=== PATIENT | female | born 1950 | race Caucasian/White ===

== ENCOUNTER 2016-11-23 16:47 | Inpatient (IN) | payer MEDICARE ==
[~2016-11-23] VITALS: Ht 162.6 cm; Wt 78.5 kg
--- NOTE | 2016-11-23 17:04 | NUR ---
GPS ADMISSION NOTES/ PATIENT DIRECT ADMIT, BROUGHT BY AMBULANCE FROM [facility] IN [place] 66 Y/OLD FEMALE ON Dx. OF DANGER TO OTHER 5150 HOLD. ACCORDING ON HOLD PATIENT PUSHED ALT NURSE DURING MED DELIVERING. PATIENT DELUSIONAL, PARANOID, VERBALLY ABUSIVE, , AGGRESSIVE. FACE TO FACE ASSESSMENT PATIENT A/O X3, DELUSIONAL, LABILE, GET IRRITABLE EASILY, FORGETFUL. V/S TAKEN BP-121/73, P-77,O2-95 ROOM AIR, T-98.2, R-20, NO RESPIRATORY DISTRESS, SKIN ASSESSMENT DONE SKIN CLEAR, PT AMBULATORY SELF CARE, CONTINENT. MRSA OF NARES SWAB TAKEN. PATIENT DENIED SI/HI AT THIS TIME. PATIENT RIGHT HAND BOOK GIVEN, AND EXPLAINED TO. BELONGING AND CONTRABAND CHECKED. DR CUI, AND DR GENTILE AWARE OF NEW MEDICATION, AND NEW MEDICATION. CONTINUED MONITORING..
[2016-11-23 17:26] VITALS: BP 121/73
[2016-11-23] MEDS ORDERED: ESCI10TA PO (17:33)
[2016-11-23] MEDS ORDERED: TRAZ-147 PO (17:33)
[2016-11-23] MEDS ORDERED: QUET300T2 PO (17:33)
[2016-11-23] MEDS ORDERED: CHOL50004 PO (17:33)
[2016-11-23] MEDS ORDERED: DOCU-170 PO (17:33)
[2016-11-23] MEDS ORDERED: MAGN400O6 PO (17:33)
[2016-11-23] MEDS ORDERED: POLY17PO4 PO (17:33)
[2016-11-23] MEDS ORDERED: ZOLP10TA6 PO (17:33)
[2016-11-23] MEDS ORDERED: FISH1CAP16 PO (17:33)
--- NOTE | 2016-11-23 20:30 | NUR ---
GPS RN NOTE: NOTIFIED DR. THAKUR TO RECONCILE THE MEDICATION. PER DR. THAKUR HE WILL CHECK IT.
[2016-11-23 20:35] VITALS: BP 130/85
--- NOTE | 2016-11-23 22:35 | NUR ---
GPS RN NOTE: PATIENT WAS REQUESTING IF SHE CAN HAVE HER SEROQUEL 400 MG AND ALL OTHER HER MEDICATIONS. EXPLAINED TO THE PATIENT THAT SHE NEEDS TO BE EVALUATED AND ASSESSED BY HER PSYCHIATRIST FIRST. PER PATIENT SHE CAN NOT SLEEP, OFFERED HER TO WATCH TV IN THE DINING AREA, PATIENT WAS COMPLAINING IN A LOUD VOICE THEN BANG THE DOOR. EXPLAINED TO THE PATIENT ABOUT HER ACTIONS WAS INAPPROPRIATE IN THIS UNIT. PATIENT LAY DOWN THE BED. CHARGE NURSE AWARE AND REDIRECTED THE PATIENT
[2016-11-24] MEDS ORDERED: LURA80TA (01:02)
[2016-11-24] MEDS ORDERED: BENZ1TAB7 (01:02)
[2016-11-24] MEDS ORDERED: QUET400T53 (01:02)
[2016-11-24] MEDS ORDERED: ESCITALOPRAM (01:02)
[2016-11-24] MEDS ORDERED: ESCI10TA (01:02)
[2016-11-24] MEDS ORDERED: CHLO25TA2 (01:02)
[2016-11-24 07:42] LABS: BASOPHILS % (AUTO) 0.5 % (0.0-2.0); EOSINOPHILS # (AUTO) 0.1 /CMM (0.0-0.7); EOSINOPHILS % (AUTO) 1.9 % (0.0-6.0); HEMATOCRIT 42 % (33-45); HEMOGLOBIN 14.3 g/dL (11.5-14.8); LYMPHOCYTES # (AUTO) 2.2 /CMM (0.8-4.8); LYMPHOCYTES % (AUTO) 30.9 % (20.0-44.0); MEAN CORPUSCULAR HEMOGLOBIN 30 PG (26.0-33.0); MEAN CORPUSCULAR HGB CONC 34 g/dl (31.0-36.0); MEAN CORPUSCULAR VOLUME 87 fL (82-100); MONOCYTES # (AUTO) 0.5 /CMM (0.1-1.30); MONOCYTES % (AUTO) 6.6 % (2.0-12.0); NEUTROPHILS # (AUTO) 4.3 /CMM (1.8-8.9); NEUTROPHILS % (AUTO) 60.1 % (43.0-81.0); PLATELET COUNT (AUTO) 296 /CMM (150-450); RDW COEFFICIENT OF VARIATION 12.7 (11.5-15.0); RED BLOOD CELL COUNT(AUTO) 4.84 MIL/uL (4.0-5.2); WHITE BLOOD COUNT (AUTO) 7.2 K/uL (4.3-11.0)
[2016-11-24 07:53] LABS: CALCIUM, SERUM 9.7 mg/dL (8.5-10.1); CREATININE 0.8 mg/dL (0.6-1.3); POTASSIUM 4.3 mmol/L (3.5-5.1)
[2016-11-24 07:58] LABS: ALBUMIN 3.5 g/dL (3.4-5.0); BILIRUBIN,TOTAL 0.4 mg/dL (0.2-1.0); MAGNESIUM 2.2 mg/dL (1.8-2.4); PHOSPHORUS 3.9 mg/dL (2.5-4.9); TOTAL PROTEIN, SERUM 7.4 g/dL (6.4-8.2)
[2016-11-24 08:00] VITALS: BP 120/78
[2016-11-24 08:05] LABS: THYROID STIMULATING HORMONE 2.177 uIU/mL (0.358-3.74)
[2016-11-24 16:00] VITALS: BP 141/60
[2016-11-24 20:00] VITALS: BP 130/58
[2016-11-25 08:33] VITALS: BP 121/90
--- NOTE | 2016-11-25 13:59 | NUR ---
Initial Discharge Note: Per patient, she resides at [address] [place] [address]. ([phone]). boil off worker attempted to contact ([phone]) however it was a wrong number. boil off worker will help form a safe and proper discharge.
[2016-11-25 16:00] VITALS: BP 140/80
[2016-11-25 20:00] VITALS: BP 126/76
--- NOTE | 2016-11-26 00:03 | NUR ---
GPS/RN NOTE: PATIENT C/O INSOMNIA, AMBIEN 5 MG TAB 1 PO GIVEN PER PATIENT'S REQUEST.
[2016-11-26 08:00] VITALS: BP 121/94
[2016-11-26 16:11] VITALS: BP 124/74
[2016-11-26 20:00] VITALS: BP 145/68
--- NOTE | 2016-11-26 22:35 | NUR ---
GPS RN NOTE: PT APPROACHED ME AND COMPLAINED OF INSOMNIA. ADMINISTERED AMBIEN 5MG TO PT. WILL CONTINUE TO MONITOR PT.
[2016-11-27 08:00] VITALS: BP 119/78
[2016-11-27 16:02] VITALS: BP 104/72
[2016-11-27 20:06] VITALS: BP 127/73
--- NOTE | 2016-11-28 01:10 | NUR ---
Pt has been with depressed mood, disorganized thoughts, flat affect, & easily irritable but compliant with care w/o any promptings.
[2016-11-28 08:00] VITALS: BP 106/74
[2016-11-28 08:33] VITALS: BP 106/74
--- NOTE | 2016-11-28 13:34 | NUR ---
OMARI left a voicemail for Mayur, securities and real estate director from [facility] [address] [place] [address]. ([phone]) regarding pt's readmission. OMARI spoke with someone from the facility who stated the only person able to make that decision is Mayur. OMARI will follow up again.
[2016-11-28 16:00] VITALS: BP 130/67
--- NOTE | 2016-11-28 19:30 | NUR ---
GPS RN NOTE, RECEIVED PATIENT AWAKE AND IN BED, NO S/S OR COMPLAINTS OF PAIN AT THIS TIME. PATIENT IS DISPLAYING NO S/S OF APPARENT DISTRESS AT THIS TIME. PATIENT BREATHING IS UNLABORED WITH EQUAL RISE AND FALL OF THE CHEST. PATIENT IS ALERT AND ORIENTED X 3 ON ROOM AIR WITH A SPO2 96%. PATIENT COMPLAINT WITH MEDICATION, ANXIOUS, COOPERATIVE AT TIMES, GUARDED, SUSPICIOUS, AND NEEDS REORIENTATION. PATIENT DENIES SUICIDE AND HOMICIDAL IDEATIONS AT THIS TIME. PATIENT ASSISTED WITH TURNING AND REPOSITIONING Q2HR AND PRN FOR COMFORT AND CIRCULATION. PATIENT HAS NO NEEDS AT THIS TIME. PATIENT EDUCATED ON THE USE OF THE CALL LE. PATIENT BED SIDE RAILS UP X2 FOR SAFETY, BED IS LOCKED AND LOW WILL CONTINUE TO MONITOR AND MAINTAIN SAFETY.
[2016-11-28 20:18] VITALS: BP 157/49
--- NOTE | 2016-11-28 21:56 | NUR ---
GPS RN NOTE, PATIENT HAS A COMPLAINT OF NOT BEING ABLE TO SLEEP AND WOULD LIKE A SLEEPING AID AT THIS TIME. PATIENT VITAL SIGNS ARE STABLE. GAVE AMBIEN 5MG PO HS ORDERED. WILL REASSESS FOR INSOMNIA AND I WILL CONTINUE TO MONITOR THIS PATIENT.
[2016-11-29 08:00] VITALS: BP 148/98
--- NOTE | 2016-11-29 15:20 | NUR ---
OMARI spoke with Jb from [facility] [address] [place] [address]. ([phone]) who now states that the rn social services needs to speak with the senior marketing data analyst, Emma. OMARI left a voicemail for Emma.
[2016-11-29 16:00] VITALS: BP 113/61
--- NOTE | 2016-11-29 19:35 | NUR ---
GPS/RN NOTE: AWAKE, ALERT, ORIENTED X 2-3. COOPERATIVE, AMBULATORY. NO APPARENT DISTRESS NOTED.
[2016-11-29 20:11] VITALS: BP 151/66
--- NOTE | 2016-11-29 22:19 | NUR ---
GPS/RN NOTE: PATIENT APPROACHED THE NURSE'S STATION, REQUESTING FOR AMBIEN DUE TO HER INABILITY TO SLEEP, AMBIEN 5 MG TAB PO GIVEN.
[2016-11-30 08:00] VITALS: BP 125/67
[2016-11-30 16:00] VITALS: BP 124/54
--- NOTE | 2016-11-30 18:00 | NUR ---
dr. rowland and dr. sainz in to see pt.
[2016-11-30 20:00] VITALS: BP 143/58
[2016-11-30 20:40] VITALS: BP 143/58
[2016-12-01 08:00] VITALS: BP 114/66
--- NOTE | 2016-12-01 13:52 | NUR ---
OMARI called [facility] [address] [place] [address], and spoke with Jb (area secretary) who redirected hospital social worker to contracting executive, Mayur Medeiros. OMARI left voicemail for Mayur Medeiros. OMARI will follow up.
[2016-12-01 16:00] VITALS: BP 122/77
[2016-12-01 20:00] VITALS: BP 116/60
[2016-12-02 07:06] LABS: BASOPHILS % (AUTO) 0.5 % (0.0-2.0); EOSINOPHILS # (AUTO) 0.1 /CMM (0.0-0.7); EOSINOPHILS % (AUTO) 1.9 % (0.0-6.0); HEMATOCRIT 39 % (33-45); HEMOGLOBIN 13.1 g/dL (11.5-14.8); LYMPHOCYTES # (AUTO) 2.3 /CMM (0.8-4.8); LYMPHOCYTES % (AUTO) 33.5 % (20.0-44.0); MEAN CORPUSCULAR HEMOGLOBIN 30 PG (26.0-33.0); MEAN CORPUSCULAR HGB CONC 34 g/dl (31.0-36.0); MEAN CORPUSCULAR VOLUME 87 fL (82-100); MONOCYTES # (AUTO) 0.5 /CMM (0.1-1.30); MONOCYTES % (AUTO) 7.4 % (2.0-12.0); NEUTROPHILS # (AUTO) 3.9 /CMM (1.8-8.9); NEUTROPHILS % (AUTO) 56.7 % (43.0-81.0); PLATELET COUNT (AUTO) 247 /CMM (150-450); RDW COEFFICIENT OF VARIATION 12.9 (11.5-15.0); RED BLOOD CELL COUNT(AUTO) 4.43 MIL/uL (4.0-5.2); WHITE BLOOD COUNT (AUTO) 6.9 K/uL (4.3-11.0)
[2016-12-02 07:23] LABS: CALCIUM, SERUM 8.9 mg/dL (8.5-10.1); CREATININE 0.8 mg/dL (0.6-1.3); POTASSIUM 3.9 mmol/L (3.5-5.1)
[2016-12-02 08:00] VITALS: BP 118/58
--- NOTE | 2016-12-02 11:11 | NUR ---
OMARI spoke with Mayur, the legal executive assistant of [facility], [address] [place] [address] at [phone]. OMARI informed Mayur that pt was ready for discharge. Mayur stated that pt can return to the independent living facility, if she is cleared by psychiatrist. Mayur stated that if pt is going to exhibit disruptive behavior, then he will consider evicting her. OMARI spoke with pt and informed her of this. Pt wants to return to [facility] and stated that she understands the potential consequences of her behavior. OMARI will follow up with and will arrange transportation, if deemed appropriate.
--- NOTE | 2016-12-02 13:03 | NUR ---
OMARI called Katya at [phone] to arrange transportation for patient. Katya informed OMARI that the poultry picker will be scheduled for Sunday 12/03 at 11am. Katya stated that she does not anticipate any issues, but if a weekend transportation cannot be arranged for any reason, then it will be rescheduled for Tuesday 12/05. OMARI informed of this. OMARI will follow up if necessary.
[2016-12-02 16:00] VITALS: BP_SYST 111; BP_SYST 123; BP_DIAS 59; BP_DIAS 71
[2016-12-02 20:00] VITALS: BP 125/80
[2016-12-03 08:00] VITALS: BP 117/59
--- NOTE | 2016-12-03 09:58 | NUR ---
DR. CUI GAVE AN ORDER TO D/C [facility] AND D/C TO [facility]. PT. WITHOUT DISTRESS, DENIES SUICIDAL AND HOMICIDAL. TO FOLLOW UP WITH PSYCHE AND MEDICAL DOCTORS. DR. CHIN MADE AWARE OF THE DISCHARGE AND CLEARED FOR DISCHARGE AND WROTE A PRESCRIPTIONS. MULU SEARS FROM [facility] WAS CALLED AND SAID THEY WILL ACCEPT THE PT. TODAY. CALLED [facility] FOR THE TRANSPORTATION AND SAID THEY WILL COME TO LABOR RELATIONS ANALYST PT. AFTER 1100. Addendum: 12/03/16 at 1053 by CHET TAM RN PER PT. NOBODY OR FAMILY TO NOTIFY ABOUT HER DISCHARGE.
--- NOTE | 2016-12-03 11:15 | NUR ---
GPS/RN PT DISCHARGED TO [facility] VIA PRIVATE TRANSPORTATION ARRANGED BY FACILITY. NO SI OR HI AT THE TIME OF DISCHARGE. PRESCRIPTIONS/EXIT CARE PROVIDED. BELONGINGS RETURNED. VSS. PT IS AMBULATORY NO C/O PAIN /DISTRESS.
== END 2016-12-03 11:15 | DRG 885 ==
LOC: GPS 16:47
PROVIDERS: ADMIT Psychiatry & Neurology Psychosomatic Medicine; ATTEND Internal Medicine
DX: F32.3 Major depressive disorder, single episode, severe with psychotic features (principal); N18.3 Chronic kidney disease, stage 3 (moderate); F03.90 Unspecified dementia, unspecified severity, without behavioral disturbance, psychotic disturbance, mood disturbance, and anxiety; F29 Unspecified psychosis not due to a substance or known physiological condition; E78.5 Hyperlipidemia, unspecified; E66.9 Obesity, unspecified; K21.9 Gastro-esophageal reflux disease without esophagitis; Z73.6 Limitation of activities due to disability; K59.00 Constipation, unspecified; Z68.29 Body mass index [BMI] 29.0-29.9, adult; I25.10 Atherosclerotic heart disease of native coronary artery without angina pectoris
CPT/HCPCS: 36415; 80048-TC; 80053-TC; 80061-TC; 80076-TC; 83540-TC; 83735-TC; 84100-TC; 84443-TC; 85025-TC; 87081-TC; Z7610

== ENCOUNTER 2016-12-31 16:07 | Inpatient (IN) | payer MEDICARE ==
[~2016-12-31] VITALS: Ht 162.6 cm; Wt 81.6 kg
[~2016-12-31 16:07] MED LIST: CHLO25TA2; CHOL50004 PO; DOCU-170 PO; FISH1CAP16 PO; MAGN400O6 PO; POLY17PO4 PO
[2016-12-31] MEDS ORDERED: LORAZEPAM 0.5 MG TABLET PO PRN (16:30)
[2016-12-31] MEDS ORDERED: TEMAZEPAM 7.5 MG CAPSULE PO PRN (16:30)
[2016-12-31] MEDS ORDERED: MAG HYDROX/AL HYDROX/SIMETH 30 ML UDC PO PRN (16:30)
[2016-12-31] MEDS ORDERED: ACETAMINOPHEN 325 MG TABLET PO PRN (16:30)
[2016-12-31] MEDS ORDERED: QUET200T PO (16:32)
[2016-12-31] MEDS ORDERED: HYDR12.55 PO (16:32)
[2016-12-31] MEDS ORDERED: ZOLP5TAB7 PO (16:32)
[2016-12-31] MEDS ORDERED: TRAZ-144 PO (16:32)
[2016-12-31] MEDS ORDERED: BENZ1TAB7 PO (16:32)
[2016-12-31] MEDS ORDERED: QUET25TA PO (16:32)
[2016-12-31] MEDS ORDERED: QUET400T PO (16:32)
[2016-12-31] MEDS ORDERED: ESCI10TA PO (16:32)
--- NOTE | 2016-12-31 17:00 | NUR ---
GPS/RN RECEIVED PT DIRECT ADMIT FROM [facility] ON [address]150 GD AND DTO. PT IS RESISTIVE TO CARE REFUSED TO SIGN ADMITTING PACKAGE/CONSENTS, REFUSED BODY ASSESSMENT, MRSA NARES SWAB. PT REFUSED TO REMOVE NECKLACE. ADMITTING ORDERS FROM DR JACOB RECEIVED AND CARRIED OUT. DR THAKUR MADE AWARE OF ADMISSION. ON FACE TO FACE ASSESSMENT NO SI OR HI PT UNABLE TO PROVIDE ANY MEANINGFUL HISTORY.
[2016-12-31 20:00] VITALS: BP 119/66
--- NOTE | 2017-01-01 08:50 | NUR ---
rn notes administered ativan 0.5 mg po prn for anxiety per patient request, v/s take bp-121/76, p-68, continued monitoring.
[2017-01-01 10:50] VITALS: BP 132/92
[2017-01-01 11:48] LABS: ALBUMIN 3.8 g/dL (3.4-5.0); BILIRUBIN,TOTAL 0.4 mg/dL (0.2-1.0); CALCIUM, SERUM 9.9 mg/dL (8.5-10.1); CREATININE 0.8 mg/dL (0.6-1.3); TOTAL PROTEIN, SERUM 7.8 g/dL (6.4-8.2)
[2017-01-01 11:50] LABS: CHOLESTEROL 216 mg/dL (<200); HDL CHOLESTEROL 68 mg/dL (40-60); LDL 124 mg/dL (0-99); TRIGLYCERIDES 140 mg/dL (30-150)
[2017-01-01] MEDS: HYDROCHLOROTHIAZIDE 25 MG TABLET PO SCH (12:42)
--- NOTE | 2017-01-01 12:42 | NUR ---
gps/rn called epic strip cutting machine operator to report low potassium to md. waiting for call back from dr Sosa regarding low potassium orders.
[2017-01-01] MEDS ORDERED: POTASSIUM CHLORIDE 20 MEQ TAB.PRT.SR PO ONE (14:30)
[2017-01-01 16:00] VITALS: BP 119/67
[2017-01-01 19:58] VITALS: BP 128/55
[2017-01-01] MEDS: DIVALPROEX SODIUM 250 MG TABLET.DR PO SCH (21:00)
--- NOTE | 2017-01-01 21:20 | NUR ---
RN NOTES PATIENT REFUSED 2100 DEPAKOTE SCHEDULED MEDICATION OFFERED X3, BUT STILL REFUSED, WILL CONTINUE TO ENCOURAGED TO COMPLY WITH MD REGIMEN .
[2017-01-01] MEDS: BENZTROPINE MESYLATE (1 MG) 1 MG TABLET PO SCH (21:33)
[2017-01-01] MEDS: QUETIAPINE FUMARATE 100 MG TABLET PO SCH (21:34)
[2017-01-01 22:00] VITALS: BP 125/67
--- NOTE | 2017-01-02 06:12 | NUR ---
RN NOTES PATIENT REFUSED AM LABS AT THIS TIME ENCOURAGED X3,EXPLAINED RISKS AND BENEFITS, BUT STILL REFUSED, WILL CONTINUE TO ENCOURAGED TO COMPLY WITH MD REGIMEN.
[2017-01-02] MEDS: HYDROCHLOROTHIAZIDE 25 MG TABLET PO SCH (08:13)
[2017-01-02] MEDS: DIVALPROEX SODIUM 250 MG TABLET.DR PO SCH ×2 (08:13→20:49)
--- NOTE | 2017-01-02 09:00 | NUR ---
GPS/RN PATIENT ADAMANTLY REFUSED DEPAKOTE 250 MG PO, CONGENTIN 1 MG PO X 3, EXPLAINED RISKS AND BENEFITS, WILL CONTINUE TO ENCOURAGE TO COMPLY WITH REGIMEN.
--- NOTE | 2017-01-02 12:26 | NUR ---
Initial Discharge Plan: Patient resides at [facility], [address] [place], [place] [id number], and wishes to return upon discharge. Patient stated that her rent has been paid through the end of the month. [facility] [address] [place] [phone], and spoke with Tosin (certified legal secretary specialist) who redirected social scientist to associate account executive, Mayur Medeiros. SW left voicemail for Mayur Medeiros inquiring about patient's residential status. SW will follow up and will work to arrange a safe and proper discharge.
[2017-01-02 16:00] VITALS: BP 142/90
[2017-01-02] MEDS: QUETIAPINE FUMARATE 100 MG TABLET PO SCH ×2 (17:30→21:03)
--- NOTE | 2017-01-02 18:17 | NUR ---
GPS/RN PATIENT REFUSED SEROQUEL 100 MG PO X 3, EXPLAINED RISKS AND BENEFITS, WILL CONTINUE TO ENCOURAGE TO COMPLY WITH REGIMEN.
--- NOTE | 2017-01-02 19:30 | NUR ---
GPS RN NOTE, RECEIVED PATIENT AWAKE AND IN BED, NO S/S OR COMPLAINTS OF PAIN AT THIS TIME. PATIENT IS DISPLAYING NO S/S OF APPARENT DISTRESS AT THIS TIME. PATIENT BREATHING IS UNLABORED WITH EQUAL RISE AND FALL OF THE CHEST. PATIENT IS ALERT AND ORIENTED X 3 ON ROOM AIR WITH A SPO2 OF 96%. PATIENT IS VERBALLY ABUSIVE AT TIMES , REFUSING MEDICATION, UNCOOPERATIVE, AND NEEDS REORIENTATION. PATIENT DENIES SUICIDE IDEATIONS AND HOMICIDAL IDEATIONS AT THIS TIME. PATIENT EDUCATED ON THE USE OF THE CALL LE. PATIENT BED SIDE RAILS UP X2 FOR SAFETY, BED IS LOCKED AND LOW, AND I WILL CONTINUE TO MONITOR AND MAINTAIN SAFETY Q15MIN WITH THE HELP OF STAFF.
[2017-01-02 19:55] VITALS: BP 142/75
[2017-01-02 20:01] VITALS: BP 142/75
--- NOTE | 2017-01-02 20:49 | NUR ---
GPS RN NOTE, PATIENT REFUSED TO TAKE DEPAKOTE 250MG 1 TAB PO Q12HR. OFFERED DEPAKOTE THREE TIMES AND STILL PATIENT REFUSED STATING, " I DON'T HAVE SEIZURES AND I'M NOT TAKING THAT MEDICATION EVER ". EDUCATED PATIENT ON THE RISKS AND BENEFITS OF TAKING AND REFUSING AFOREMENTIONED MEDICATION. WILL CONTINUE TO MONITOR THIS PATIENT.
[2017-01-02] MEDS: BENZTROPINE MESYLATE (1 MG) 1 MG TABLET PO SCH (21:03)
[2017-01-02] MEDS: ZOLPIDEM TARTRATE 10 MG TABLET PO PRN (21:03)
--- NOTE | 2017-01-02 21:03 | NUR ---
GPS RN NOTE, PATIENT HAS A COMPLAINT OF NOT BEING ABLE TO SLEEP AND IS REQUESTING AMBIEN AT THIS TIME. PATIENT VITAL SIGNS ARE STABLE. GAVE AMBIEN 10MG PO HS ORDERED. WILL REASSESS FOR INSOMNIA AND I WILL CONTINUE TO MONITOR THIS PATIENT.
[2017-01-03 06:37] LABS: BASOPHILS % (AUTO) 0.4 % (0.0-2.0); EOSINOPHILS # (AUTO) 0.1 /CMM (0.0-0.7); HEMATOCRIT 42 % (33-45); HEMOGLOBIN 14.4 g/dL (11.5-14.8); LYMPHOCYTES # (AUTO) 2.4 /CMM (0.8-4.8); MEAN CORPUSCULAR HEMOGLOBIN 30 PG (26.0-33.0); MEAN CORPUSCULAR HGB CONC 34 g/dl (31.0-36.0); MEAN CORPUSCULAR VOLUME 87 fL (82-100); MONOCYTES # (AUTO) 0.5 /CMM (0.1-1.30); NEUTROPHILS # (AUTO) 3.6 /CMM (1.8-8.9); NEUTROPHILS % (AUTO) 53.6 % (43.0-81.0); PLATELET COUNT (AUTO) 289 /CMM (150-450); RDW COEFFICIENT OF VARIATION 13.4 (11.5-15.0); RED BLOOD CELL COUNT(AUTO) 4.86 MIL/uL (4.0-5.2); WHITE BLOOD COUNT (AUTO) 6.7 K/uL (4.3-11.0)
[2017-01-03 07:10] LABS: CALCIUM, SERUM 9.3 mg/dL (8.5-10.1); CREATININE 0.9 mg/dL (0.6-1.3); MAGNESIUM 2.2 mg/dL (1.8-2.4); PHOSPHORUS 3.5 mg/dL (2.5-4.9)
--- NOTE | 2017-01-03 07:30 | NUR ---
PT RECEIVED RESTING COMFORTABLY IN BED. NO S/S OR C/O PAIN OR DISTRESS NOTED. SIDE RAILS UP X2, WILL CONTINUE PLAN OF CARE.
[2017-01-03 08:00] VITALS: BP 131/74
[2017-01-03] MEDS: DIVALPROEX SODIUM 250 MG TABLET.DR PO SCH ×2 (09:00→21:00)
[2017-01-03] MEDS: HYDROCHLOROTHIAZIDE 25 MG TABLET PO SCH (09:00)
[2017-01-03] MEDS: QUETIAPINE FUMARATE 100 MG TABLET PO SCH ×3 (09:00→21:15)
--- NOTE | 2017-01-03 10:52 | NUR ---
OMARI received a phone call from Mayur Medeiros from [facility] [phone] who stated that pt is able to return home, but that this would be her last chance. Mayur stated that if she acts up again, then she will receive an eviction notice. OMARI followed up with pt's career discovery teacher, who stated that they will work to arrange care for patient after discharge to keep her stable. Addendum: 01/03/17 at 1206 by VICTOR M SALCIDO institutional research coordinator stated that pt's psychiatrist is Dr. Russo. OMARI will obtain information for doctor.
[2017-01-03 15:38] VITALS: BP 119/95
[2017-01-03] MEDS ORDERED: LORAZEPAM INJ 2 MG/ML VIAL IM STA (15:54)
[2017-01-03] MEDS ORDERED: diphenhydrAMINE HCL 50 MG/ML VIAL IM STA (15:54)
[2017-01-03] MEDS ORDERED: HALOPERIDOL LACTATE INJ 5 MG/ML VIAL IM STA (15:54)
--- NOTE | 2017-01-03 16:00 | NUR ---
PT WITH ACUTE AGITATION AND RAISED VOICE, NON-REDIRECTABLE. MD MADE AWARE THAT PATIENT HAS BEEN REFUSING SCHEDULED MEDS. ORDERS RECEIVED FROM DR JACOB.
--- NOTE | 2017-01-03 16:00 | NUR ---
GPS/RN PATIENT PRESENTED WITH ACUTE AGITATION,YELLING, UNABLE TO REDIRECT. PER DR JACOB, NEW ORDER OF HALDOL 10 MG IM X1, ATIVAN 2MG IM X1, BENADRYL 50 MG IM X 1.
--- NOTE | 2017-01-03 18:31 | NUR ---
CHANGE OF SHIFT REPORT PT WALKING SAFELY IN HALLS. NO S/S OR C/O PAIN OR DISTRESS NOTED. SIDE RAILS UP X2, CALL LIGHT LEFT WITHIN REACH. PT KEPT CLEAN, DRY, AND COMFORTABLE. NO SIGNIFICANT CHANGES SINCE PREVIOUS SHIFT. WILL GIVE REPORT TO MELANIE MEDINA. Addendum: 01/03/17 at 1835 by FELIPE SHIELDS RN NO CALL LIGHT.
[2017-01-03 19:49] VITALS: BP 142/72
[2017-01-03] MEDS: MAGNESIUM HYDROXIDE 30 ML UDC PO PRN (20:16)
[2017-01-03] MEDS: BENZTROPINE MESYLATE (1 MG) 1 MG TABLET PO SCH (21:15)
--- NOTE | 2017-01-03 21:27 | NUR ---
RN NOTES PATIENT REFUSED 2100 DEPAKOTE SCHEDULED MEDICATION OFFERED X3, BUT STILL REFUSED, WILL CONTINUE TO ENCOURAGED TO COMPLY WITH MD REGIMEN .
[2017-01-03] MEDS: ZOLPIDEM TARTRATE 10 MG TABLET PO PRN (22:05)
--- NOTE | 2017-01-04 07:00 | NUR ---
RN OPENING NOTES REC'VD REPORT FROM JACOB MEDINA. PT A&OX3. PARANOID. CALM. SITTING AT EDGE OF BED. INDEP SELF CARE. NO APPARENT DISTRESS. 5150 PSYCHOSIS. WILL CONT TO MONITOR CLOSELY.
[2017-01-04] MEDS: HYDROCHLOROTHIAZIDE 25 MG TABLET PO SCH (07:50)
[2017-01-04] MEDS: QUETIAPINE FUMARATE 100 MG TABLET PO SCH ×3 (07:51→21:26)
[2017-01-04] MEDS: DIVALPROEX SODIUM 250 MG TABLET.DR PO SCH ×2 (07:51→21:00)
--- NOTE | 2017-01-04 08:00 | NUR ---
PT REFUSED MORNING MEDS.
[2017-01-04 08:19] VITALS: BP 130/70
[2017-01-04 15:47] VITALS: BP 130/79
--- NOTE | 2017-01-04 18:00 | NUR ---
RN CLOSING NOTES NO INCIDENTS DURING SHIFT. PT REFUSED MEDS. GOOD APPETITE. WANDERING HALLS MAKING RANDOM STATEMENTS. CALM. DENIES SI/HI AVH.
[2017-01-04] MEDS: BENZTROPINE MESYLATE (1 MG) 1 MG TABLET PO SCH (21:25)
--- NOTE | 2017-01-04 21:30 | NUR ---
RN NOTES PATIENT REFUSED 2100 DEPAKOTE 250 MG PO, SCHEDULED MEDICATION OFFERED X3, BUT STILL REFUSED, WILL CONTINUE TO ENCOURAGED TO COMPLY WITH MD REGIMEN .
[2017-01-04] MEDS: MAGNESIUM HYDROXIDE 30 ML UDC PO PRN (21:45)
[2017-01-05 08:00] VITALS: BP 120/63
[2017-01-05] MEDS: QUETIAPINE FUMARATE 100 MG TABLET PO SCH (08:18)
[2017-01-05] MEDS: DIVALPROEX SODIUM 250 MG TABLET.DR PO SCH ×2 (08:18→22:24)
[2017-01-05] MEDS: HYDROCHLOROTHIAZIDE 25 MG TABLET PO SCH (08:18)
--- NOTE | 2017-01-05 09:00 | NUR ---
GPS/RN PATIENT REFUSED SEROQUEL 100 MG, DEPAKOTE 250 MG COGENTIN 1 MG X 3, EXPLAINED RISKS AND BENEFITS, WILL CONTINUE TO ENCOURAGE TO COMPLY WITH REGIMEN.
--- NOTE | 2017-01-05 15:37 | NUR ---
GPS/RN PER DR JACOB, D/C SEROQUEL 100 MG BID, INPUT NEW ORDER OF SEROQUEL 600 MG PO HS. CARRIED OUT ORDERED.
--- NOTE | 2017-01-05 15:52 | NUR ---
OMARI called [facility] at [phone] and left a voicemail for Monica. OMARI stated that she received this number from patient and wanted to follow up on what services are available for patient upon discharge. Addendum: 01/05/17 at 1606 by VICTOR M SALCIDO Patient told OMARI that the marketing professional, Emma, at [facility] gave her this phone number as a resource.
[2017-01-05 16:00] VITALS: BP 130/70
[2017-01-05 20:00] VITALS: BP 120/71
[2017-01-05] MEDS ORDERED: QUETIAPINE FUMARATE 100 MG TABLET ONE (21:24)
[2017-01-05] MEDS ORDERED: QUETIAPINE FUMARATE 100 MG TABLET PO SCH (22:00)
[2017-01-05] MEDS: BENZTROPINE MESYLATE (1 MG) 1 MG TABLET PO SCH (22:25)
[2017-01-05] MEDS: ZOLPIDEM TARTRATE 10 MG TABLET PO PRN (22:25)
[2017-01-06 08:00] VITALS: BP 130/77
[2017-01-06] MEDS: HYDROCHLOROTHIAZIDE 25 MG TABLET PO SCH (08:44)
[2017-01-06] MEDS: DIVALPROEX SODIUM 250 MG TABLET.DR PO SCH ×2 (08:44→08:57)
--- NOTE | 2017-01-06 08:57 | NUR ---
GPS/RN PT REFUSED DEPACOTE PO. PT STATES : " I DO NOT HAVE ANY SEIZURES..." OFFERED X3.
[2017-01-06] MEDS ORDERED: BENZTROPINE MESYLATE (2MG/2ML) 2 MG/2 ML AMPUL IM PRN (16:00)
[2017-01-06] MEDS ORDERED: HALOPERIDOL LACTATE INJ 5 MG/ML VIAL IM PRN (16:00)
[2017-01-06] MEDS ORDERED: HALOPERIDOL DECANOATE IM 100 MG/ML AMPUL IM ONE ×2 (16:00→17:00)
[2017-01-06 16:08] VITALS: BP 148/68
[2017-01-06 20:00] VITALS: BP 138/55
[2017-01-06] MEDS: BENZTROPINE MESYLATE (1 MG) 1 MG TABLET PO SCH (21:13)
[2017-01-06] MEDS: DIVALPROEX SODIUM 500 MG TABLET.DR PO SCH (21:14)
[2017-01-06] MEDS: QUETIAPINE FUMARATE 100 MG TABLET PO SCH (21:14)
[2017-01-06] MEDS: ZOLPIDEM TARTRATE 10 MG TABLET PO PRN (22:47)
[2017-01-07 08:00] VITALS: BP 106/57
[2017-01-07] MEDS: HYDROCHLOROTHIAZIDE 25 MG TABLET PO SCH (08:25)
[2017-01-07 16:00] VITALS: BP 132/67
[2017-01-07 20:00] VITALS: BP 120/64
--- NOTE | 2017-01-07 21:15 | NUR ---
RN NOTES RECEIVED PATIENT IN BED, ALERT AND ORIENTED X3, CALM AT THIS TIME, COOPERATIVE, NO SOB, NO DISTRESS, NO PAIN, KEPT SAFE AND COMFORTABLE, WILL CONTINUE TO MONITOR
[2017-01-07] MEDS: QUETIAPINE FUMARATE 100 MG TABLET PO SCH (22:02)
[2017-01-07] MEDS: ZOLPIDEM TARTRATE 10 MG TABLET PO PRN (22:03)
[2017-01-07] MEDS: BENZTROPINE MESYLATE (1 MG) 1 MG TABLET PO SCH (22:04)
[2017-01-07] MEDS: DIVALPROEX SODIUM 500 MG TABLET.DR PO SCH (22:04)
--- NOTE | 2017-01-08 06:58 | NUR ---
RN NOTES PATIENT IN BED, RESTING COMFORTABLY, NO SOB, NO DISTRESS, NO BEHAVIOR DISTURBANCE DURING SHIFT
[2017-01-08 07:49] VITALS: BP 114/63
[2017-01-08] MEDS: HYDROCHLOROTHIAZIDE 25 MG TABLET PO SCH (09:13)
[2017-01-08 15:32] VITALS: BP 149/58
--- NOTE | 2017-01-08 15:52 | NUR ---
RN NOTES RADIOLOGY CALLED IN REGARDS TO THE CHEST XR ORDERED BY DR. THAKUR. PER TECH "WE WILL FOLLOW UP ON IT".
--- NOTE | 2017-01-08 16:07 | NUR ---
RN NOTES CHEST RX COMPLETED. AWAITING RESULTS
[2017-01-08 19:38] VITALS: BP 132/59
[2017-01-08] MEDS: BENZTROPINE MESYLATE (1 MG) 1 MG TABLET PO SCH (21:01)
[2017-01-08] MEDS: QUETIAPINE FUMARATE 100 MG TABLET PO SCH (21:01)
[2017-01-08] MEDS: ZOLPIDEM TARTRATE 10 MG TABLET PO PRN (21:45)
[2017-01-08] MEDS: DIVALPROEX SODIUM 500 MG TABLET.DR PO SCH (22:00)
[2017-01-09 07:58] VITALS: BP 137/79
[2017-01-09] MEDS: HYDROCHLOROTHIAZIDE 25 MG TABLET PO SCH (08:28)
[2017-01-09 15:31] VITALS: BP 126/78
[2017-01-09 19:37] VITALS: BP 111/74
[2017-01-09] MEDS: MAGNESIUM HYDROXIDE 30 ML UDC PO PRN (21:13)
[2017-01-09] MEDS: QUETIAPINE FUMARATE 100 MG TABLET PO SCH (21:15)
[2017-01-09] MEDS: BENZTROPINE MESYLATE (1 MG) 1 MG TABLET PO SCH (21:15)
[2017-01-09] MEDS: DIVALPROEX SODIUM 500 MG TABLET.DR PO SCH (22:00)
[2017-01-10 08:14] VITALS: BP 129/71
[2017-01-10] MEDS: HYDROCHLOROTHIAZIDE 25 MG TABLET PO SCH (08:41)
--- NOTE | 2017-01-10 08:49 | NUR ---
RN NOTE:PATIENT AGITATED AND MEDICATED WITH ATIVAN 0.5 MG.
[2017-01-10] MEDS: QUETIAPINE FUMARATE 25 MG TABLET PO SCH ×2 (10:00→17:16)
[2017-01-10 15:56] VITALS: BP 129/68
[2017-01-10 20:09] VITALS: BP 129/67
[2017-01-10] MEDS: BENZTROPINE MESYLATE (1 MG) 1 MG TABLET PO SCH (21:24)
[2017-01-10] MEDS: QUETIAPINE FUMARATE 100 MG TABLET PO SCH (21:24)
[2017-01-10] MEDS: MAGNESIUM HYDROXIDE 30 ML UDC PO PRN (21:26)
[2017-01-11 07:37] LABS: BASOPHILS % (AUTO) 0.6 % (0.0-2.0); EOSINOPHILS # (AUTO) 0.1 /CMM (0.0-0.7); EOSINOPHILS % (AUTO) 1.8 % (0.0-6.0); HEMATOCRIT 43 % (33-45); HEMOGLOBIN 14.7 g/dL (11.5-14.8); LYMPHOCYTES # (AUTO) 2.5 /CMM (0.8-4.8); LYMPHOCYTES % (AUTO) 43.2 % (20.0-44.0); MEAN CORPUSCULAR HEMOGLOBIN 30 PG (26.0-33.0); MEAN CORPUSCULAR HGB CONC 34 g/dl (31.0-36.0); MEAN CORPUSCULAR VOLUME 87 fL (82-100); MONOCYTES # (AUTO) 0.6 /CMM (0.1-1.30); MONOCYTES % (AUTO) 10.1 % (2.0-12.0); NEUTROPHILS # (AUTO) 2.6 /CMM (1.8-8.9); NEUTROPHILS % (AUTO) 44.3 % (43.0-81.0); PLATELET COUNT (AUTO) 249 /CMM (150-450); RDW COEFFICIENT OF VARIATION 13.8 (11.5-15.0); RED BLOOD CELL COUNT(AUTO) 4.94 MIL/uL (4.0-5.2); WHITE BLOOD COUNT (AUTO) 5.8 K/uL (4.3-11.0)
[2017-01-11 08:01] LABS: CALCIUM, SERUM 9.3 mg/dL (8.5-10.1); POTASSIUM 3.7 mmol/L (3.5-5.1)
[2017-01-11 08:10] VITALS: BP 99/60
[2017-01-11] MEDS: HYDROCHLOROTHIAZIDE 25 MG TABLET PO SCH (09:08)
[2017-01-11] MEDS: QUETIAPINE FUMARATE 25 MG TABLET PO SCH ×3 (09:08→17:00)
--- NOTE | 2017-01-11 15:28 | NUR ---
OMARI faxed over the medication list to ACT team, who will coordinate pt's psychiatric follow up to fax number [phone] / phone number is [phone]
[2017-01-11 16:00] VITALS: BP 123/54
--- NOTE | 2017-01-11 17:30 | NUR ---
Checked patient blood sugar level 458mg/dl, given 15units of Humulin R as ordered. Left a voicemail message to Dr. Dawson. Awaiting call from . Addendum: 01/11/17 at 1829 by DHAVAL MARTINEZ RN Wrong charting
[2017-01-11 19:55] VITALS: BP 130/72
[2017-01-11] MEDS: QUETIAPINE FUMARATE 100 MG TABLET PO SCH (21:00)
[2017-01-11] MEDS: BENZTROPINE MESYLATE (1 MG) 1 MG TABLET PO SCH (21:00)
[2017-01-12] MEDS: HYDROCHLOROTHIAZIDE 25 MG TABLET PO SCH (08:29)
--- NOTE | 2017-01-12 08:44 | NUR ---
DR. CUI GAVE AN ORDER TO D/C HOLD AND D/C TO ASSISTED LIVING FACILITY AT [facility]. PT. WITHOUT DISTRESS, DENIES SUICIDAL AND HOMICIDAL AND TO FOLLOW UP WITH PSYCH AND MEDICAL DOCTORS.
[2017-01-12 08:46] VITALS: BP 124/82
[2017-01-12] MEDS: QUETIAPINE FUMARATE 25 MG TABLET PO SCH (09:00)
--- NOTE | 2017-01-12 11:30 | NUR ---
GPS/RN PATIENT CLEARED FOR DISCHARGE TO [facility] BY DR CUI AND DR TRIMBLE. PRESCRIPTIONS, PACKET AND AFTERCARE PLAN EXPLAINED TO PATIENT, VERBALIZED UNDERSTANDING. ALL BELONGINGS AND VALUABLES RETURNED AND SIGNED FOR BY PATIENT. PATIENT HAD $606.00 IN SAFE, MONEY WAS COUNTED BY PRIMARY NURSE AND WITNESSED BY CHARGE NURSE. PRIMARY NURSE COUNTED MONEY IN FRONT OF PATIENT AND TRANSPORT.PATIENT REFUSED SKIN ASSESSMENT UPON DISCHARGE, PATIENT DENIES SI/HI/AH UPON DISCHARGE, PSYCHIATRIC TREATMENT PLANS MET,LEFT UNIT CALM, COOPERATIVE, NO AGITATION, NO DISTRESS WITH TRANSPORT AND ASSISTANT OCEANOGRAPHER AT SIDE.
--- NOTE | 2017-01-12 12:45 | NUR ---
Discharge Note Patient will be discharged to assisted living facility at [facility], [address] [place] [address], [phone] via transportation arranged through [facility] for [place]. The director at [facility] has been notified via voicemail. Patient will follow up with her psych nurse practioner, Gwendolyn Gupta from ACT [facility], [address] [facility], [phone] on January 19, 2017 at 9:30am. Patient will follow up with her medical doctor, Dr. Morelos [address] [facility], [phone] on January 23 at 10am. Patient will also be visited by her residential case manager twice a week. When social science professor attempted to obtain information regarding the residential case manager, she was informed that the specific residential case manager has not yet been assigned, but that everyone on the ACT team works as a group. Per patients request, SW contact Dr. Lentz, [address] [place] [phone], who is a psychiatrist. Patient wanted an appointment with her and stated that she can pay her privately. SW left a voicemail for the doctor and also provided patient with the contact number. Please note: OMARI heard back from Dr. Lentz who stated she is no longer in private practice. OMARI informed patient on this.
== END 2017-01-12 11:35 | DRG 885 ==
LOC: GPS 16:07
PROVIDERS: ADMIT Psychiatry & Neurology Psychosomatic Medicine; ATTEND Internal Medicine
DX: F25.9 Schizoaffective disorder, unspecified (principal); F29 Unspecified psychosis not due to a substance or known physiological condition; E78.5 Hyperlipidemia, unspecified; F31.9 Bipolar disorder, unspecified; K21.9 Gastro-esophageal reflux disease without esophagitis; I10 Essential (primary) hypertension; Z91.5 Personal history of self-harm
CPT/HCPCS: 36415; 71010-TC; 80048-TC; 80053-TC; 80061-TC; 83735-TC; 84100-TC; 85025-TC; J1200; J1630; J1631; J2060